=== PATIENT | male | born 1985 | race Caucasian/White ===

== ENCOUNTER 2019-05-25 01:57 | Emergency (ER) | payer OTHER ==
[~2019-05-25] VITALS: Ht 177.8 cm; Wt 89.8 kg
[2019-05-25 02:06] VITALS: Ht 177.8 cm; Wt 89.8 kg
[2019-05-25 05:11] VITALS: BP 103/64
== END 2019-05-25 05:11 | disposition home or self-care (01) ==
LOC: ED 01:57
DX: M79.645 Pain in left finger(s) (principal); L53.9 Erythematous condition, unspecified; Z88.5 Allergy status to narcotic agent; Z88.1 Allergy status to other antibiotic agents; Z88.8 Allergy status to other drugs, medicaments and biological substances
CPT/HCPCS: A4570

== ENCOUNTER 2019-08-24 18:54 | Emergency (ER) | payer OTHER ==
[~2019-08-24] VITALS: Ht 177.8 cm; Wt 81.6 kg
[2019-08-24 18:59] VITALS: Ht 177.8 cm; Wt 81.6 kg
[2019-08-24 19:50] LABS: BASOPHIL % 0.5 % (0-2); PLATELET COUNT 172 x10^3mcL (130-400); RED CELL DISTRIBUTION WIDTH 13.5 % (11.5-14.5)
[2019-08-24 19:52] LABS: microscopic required? NO
[2019-08-24 20:01] LABS: CALCIUM 8.2 mg/dL (8.5-10.1); CARBON DIOXIDE 32.2 mmol/L (21-32); CHLORIDE SERUM 103 mmol/L (98-107); CREATININE SERUM 0.8 mg/dL (0.7-1.3); GFR1 > 60 mL/min; GLUCOSE SERUM 85 mg/dL (74-106); POTASSIUM SERUM 4.3 mmol/L (3.5-5.1); SODIUM SERUM 141 mmol/L (136-145)
[2019-08-24 20:05] LABS: ALBUMIN 3.5 g/dL (3.4-5.0); ALKALINE PHOSPHATASE 114 U/L (46-116); ALT/SGPT 29 U/L (16-63); AST/SGOT 29 U/L (15-37); BILIRUBIN TOTAL 0.4 mg/dL (0.20-1.00); TOTAL PROTEIN, SERUM 6.8 g/dL (6.4-8.2)
[2019-08-24 20:15] LABS: UA SPECIFIC GRAVITY 1.015 (1.005-1.035); urine erythrocyte NEGATIVE (NEGATIVE)
[2019-08-24 20:24] LABS: AMPHETAMINE QUAL UR POSITIVE (See below)
[2019-08-24 23:33] VITALS: BP 130/96
== END 2019-08-24 23:33 | disposition home or self-care (01) ==
LOC: ED 18:54
PROVIDERS: Specialist
DX: F19.10 Other psychoactive substance abuse, uncomplicated (principal); Z88.5 Allergy status to narcotic agent; Z88.1 Allergy status to other antibiotic agents
CPT/HCPCS: 36415; G0480

== ENCOUNTER 2020-01-13 20:56 | Emergency (ER) | payer OTHER ==
[~2020-01-13] VITALS: Ht 167.6 cm; Wt 89.8 kg
[2020-01-13 21:11] VITALS: Ht 167.6 cm; Wt 89.8 kg
[2020-01-13 22:41] VITALS: BP 117/79
== END 2020-01-13 22:41 | disposition home or self-care (01) ==
LOC: ED 20:56
DX: L02.416 Cutaneous abscess of left lower limb (principal); Z88.5 Allergy status to narcotic agent; Z88.1 Allergy status to other antibiotic agents